=== PATIENT | male | born 1970 | race Caucasian/White ===

== ENCOUNTER → 2016-07-22 | Outpatient (CLI) | payer BC | LOC: LABWHC1 09:26 | PROVIDERS: ATTEND Internal Medicine Interventional Cardiology | DX: I25.10 Atherosclerotic heart disease of native coronary artery without angina pectoris (principal); E78.5 Hyperlipidemia, unspecified; E03.9 Hypothyroidism, unspecified | CPT/HCPCS: 36415; 80061; 82550; 84439; 84443; 84450; 84460 ==

== ENCOUNTER → 2018-05-25 | Outpatient (CLI) | payer BC ==
[2018-05-25 17:14] LABS: Albumin 4.6 g/dL (3.80-4.90); Albumin/Globulin Ratio 2.3 (1.60-3.17); Anion Gap 12.4 mmol/L (4.00-12.00); Calcium 9.7 mg/dL (8.7-10.3); Carbon Dioxide 24.6 mmol/L (21.6-31.8); LDL Cholesterol,Calculated 37.6 mg/dL (0.0-131.0); Potassium 4.2 mmol/L (3.5-5.5); Total Bilirubin 0.3 mg/dL (0.2-1.2); Total Protein 6.6 g/dL (6.2-8.2); VLDL Calculation 67.4 mg/dL (5.00-40.00)
== END | disposition home or self-care (01) ==
LOC: LABWHC1 08:34
PROVIDERS: ATTEND Family Medicine
DX: I10 Essential (primary) hypertension (principal); E11.59 Type 2 diabetes mellitus with other circulatory complications; F10.20 Alcohol dependence, uncomplicated; M54.5 Low back pain; I25.10 Atherosclerotic heart disease of native coronary artery without angina pectoris; Z68.37 Body mass index [BMI] 37.0-37.9, adult
CPT/HCPCS: 36415; 80053; 80061

== ENCOUNTER 2019-01-18 12:07 | Emergency (ER) | payer BC ==
[2019-01-18 12:35] VITALS: BP 193/84; PULSE 78; RESP 16; TEMP 98.4
--- NOTE | 2019-01-18 12:44 | ED ---
Lower Extremity Injury HPI - General Chief Complaint: Extremity Injury, Lower Stated Complaint: left foot injury Time Seen by Provider: 01/18/19 12:37 Source: patient, RN notes reviewed Mode of arrival: wheelchair Limitations: no limitations - History of Present Illness Initial Comments: 48-year-old male presents emergency Department chief complaint of left foot pain. Patient states that he stepped awkwardly last night felt a crack in his foot. Patient states his lateral left foot pain no prior fractures. Denies any paresthesias no ankle pain. Patient states this did happen at work. - Related Data Previous Rx's Medication Instructions Recorded Ibuprofen [Motrin] 600 mg PO Q8HR PRN #30 tab 01/18/19 Allergies Allergy/AdvReac Type Severity Reaction Status Date / Time shellfish derived [Shellfish] Allergy Anaphylaxis Verified 01/18/19 12:36 Beta Blockers AdvReac Unknown Uncoded 01/18/19 12:36 Review of Systems ROS Statement: Those systems with pertinent positive or pertinent negative responses have been documented in the HPI. ROS Other: All systems not noted in ROS Statement are negative. Past Medical History Past Medical History: Coronary Artery Disease (CAD), Chest Pain / Angina, Diabetes Mellitus, Hyperlipidemia, Hypertension, Myocardial Infarction ([place]) History of Any Multi-Drug Resistant Organisms: None Reported Past Surgical History: Appendectomy, Heart Catheterization With Stent, Hernia Repair, Orthopedic Surgery Past Psychological History: No Psychological Hx Reported Smoking Status: Current every day smoker Past Alcohol Use History: Occasional Past Drug Use History: None Reported General Exam Limitations: no limitations General appearance: alert, in no apparent distress Head exam: Present: atraumatic, normocephalic, normal inspection Respiratory exam: Present: normal lung sounds bilaterally. Absent: respiratory distress, wheezes, rales, rhonchi, stridor Cardiovascular Exam: Present: regular rate, normal rhythm, normal heart sounds. Absent: systolic murmur, diastolic murmur, rubs, gallop, clicks Extremities exam: Present: other (Left foot there is tenderness of the fifth metatarsal region, neurovascular intact with cap refill less than 2 seconds there is no malleolar tenderness no laxity noted there is no notable swelling or ecchymosis) Skin exam: Present: warm, dry, intact, normal color. Absent: rash Course Vital Signs 01/18/19 12:31 Temperature 98.4 F Pulse Rate 78 Respiratory 16 Rate Blood Pressure 193/84 O2 Sat by Pulse 96 Oximetry Medical Decision Making - Medical Decision Making X-rays were obtained which shows no acute fracture left foot. Patient left foot sprain. Patient was given prescription for crutches patient will continue ant i-inflammatories and return for any worsening symptoms. Disposition Clinical Impression: Sprain of left foot Disposition: HOME SELF-CARE Condition: Stable Instructions (If sedation given, give patient instructions): Foot Sprain (ED) Additional Instructions: Please return to the Emergency Department if symptoms worsen or any other concerns. Prescriptions: Ibuprofen [Motrin] 600 mg PO Q8HR PRN #30 tab PRN Reason: Pain Is patient prescribed a controlled substance at d/c from ED?: No Referrals: Jef Michael MD [Primary Care Provider] - 1-2 days Time of Disposition: 13:03
--- NOTE | 2019-01-18 12:57 | XR ---
EXAMINATION TYPE: XR foot complete LT , 3 VIEWS DATE OF EXAM ORDERED: 01/18/2019 HISTORY: pain lateral foot. COMPARISON: None. FINDINGS: There is a mild hallux valgus deformity. There are mild degenerative changes in the left f irst MTP joint. No fracture, dislocation or other acute osseous lesion is seen. IMPRESSION: 1. NO ACUTE OSSEOUS LESION. 2. MILD DEGENERATIVE CHANGE.
== END 2019-01-18 13:15 | disposition home or self-care (01) ==
LOC: EC 12:07
DX: S93.602A Unspecified sprain of left foot, initial encounter (principal); I25.119 Atherosclerotic heart disease of native coronary artery with unspecified angina pectoris; E11.9 Type 2 diabetes mellitus without complications; E78.5 Hyperlipidemia, unspecified; I10 Essential (primary) hypertension; I25.2 Old myocardial infarction; F17.200 Nicotine dependence, unspecified, uncomplicated; Z88.8 Allergy status to other drugs, medicaments and biological substances; Z91.013 Allergy to seafood; Z95.5 Presence of coronary angioplasty implant and graft; X50.9XXA Other and unspecified overexertion or strenuous movements or postures, initial encounter
CPT/HCPCS: 99283

== ENCOUNTER → 2019-10-23 | Outpatient (CLI) | payer BC | END | disposition home or self-care (01) | LOC: LABWHC1 13:04 | PROVIDERS: ATTEND Family Medicine | DX: Z20.828 Contact with and (suspected) exposure to other viral communicable diseases (principal) | CPT/HCPCS: U0003; C9803 ==

== ENCOUNTER 2023-08-21 07:20 | Day surgery (SDC) | payer BC ==
[2023-08-14 13:04] VITALS: BMI 36.5
[~2023-08-21 07:20] MED LIST: LACTATED RINGERS 1,000 ML IV SCH; LIDOCAINE 1% (10MG/ML) FOR IV START INTRADERMA PRN
[2023-08-21] MEDS: LACTATED RINGERS 1,000 ML IV ONE (08:15)
[2023-08-21 08:27] LABS: Glucose,Whole Blood 133 mg/dL (70-110)
[2023-08-21 08:47] VITALS: TEMP 97.2
[2023-08-21] MEDS ORDERED: LIDOCAINE 1% INJ 10MG/ML (20 ML MDV) ONE (08:49)
[2023-08-21] MEDS ORDERED: PROPOFOL 10 MG/ML 20 ML VIAL IV ONE (08:49)
--- NOTE | 2023-08-21 08:56 | P.GSHP ---
History of Present Illness H&P Date: 08/21/23 Chief Complaint: Colon cancer screening 53-year-old male here for colonoscopy. He has not had one previously. No bowel complaints. No family history of colon cancer. Past Medical History Past Medical History: Coronary Artery Disease (CAD), Chest Pain / Angina, Diabetes Mellitus, Hyperlipidemia, Hypertension, Myocardial Infarction ([place]) Additional Past Medical History / Comment(s): tachycardia Last Myocardial Infarction Date:: 2015 History of Any Multi-Drug Resistant Organisms: None Reported Past Surgical History: Appendectomy, Heart Catheterization With Stent, Hernia Repair Past Anesthesia/Blood Transfusion Reactions: No Reported Reaction Date of Last Stent Placement:: 2015 x2 stents Past Psychological History: No Psychological Hx Reported Smoking Status: Current every day smoker Past Alcohol Use History: Occasional Past Drug Use History: None Reported Medications and Allergies Home Medications Medication Instructions Recorded Confirmed Type Aspirin [Adult Low Dose Aspirin EC] 81 mg PO QAM 08/14/23 08/14/23 History Atorvastatin [Lipitor] 40 mg PO HS 08/14/23 08/21/23 History Cholecalciferol [Vitamin D3 (25 25 mcg PO DAILY 08/14/23 08/14/23 History Mcg = 1000 Iu)] Dapagliflozin Propanediol [Farxiga] 10 mg PO QAM 08/14/23 08/14/23 History Fenofibrate [Lofibra] 160 mg PO QAM 08/14/23 08/14/23 History Irbesartan/Hydrochlorothiazide 1 each PO QAM 08/14/23 08/21/23 History [Irbesartan-Hctz 300-12.5 mg Tb] Nf-Potassium Dose Unk 1 tab PO DAILY 08/14/23 08/21/23 History Omeprazole 20 mg PO DAILY 08/14/23 08/21/23 History Ticagrelor [Brilinta] 90 mg PO QAM 08/14/23 08/21/23 History Turmeric Root Extract [Turmeric] 500 mg PO DAILY 08/14/23 08/14/23 History Ubidecarenone [Coenzyme Q10] 100 mg PO DAILY 08/14/23 08/14/23 History Zinc Gluconate [Zinc] 50 mg PO DAILY 08/14/23 08/14/23 History allopurinoL [Zyloprim] 300 mg PO QAM 08/14/23 08/14/23 History buPROPion HCL [Wellbutrin XL] 150 mg PO QAM 08/14/23 08/14/23 History cloNIDine HCL [Catapres] 0.3 mg PO QAM 08/14/23 08/21/23 History dilTIAZem HCL [dilTIAZem HCL 24Hr 300 mg PO QAM 08/14/23 08/14/23 History ER (Tiazac)] glipiZIDE 2.5 mg PO QAM 08/14/23 08/21/23 History Allergies Allergy/AdvReac Type Severity Reaction Status Date / Time shellfish derived [Shellfish] Allergy Anaphylaxis Verified 01/18/19 12:36 Beta Blockers AdvReac Unknown Uncoded 08/14/23 11:54 Surgical - Exam Vital Signs Temp Pulse Resp BP Pulse Ox 97.2 F L 69 20 127/63 95 08/21/23 08:17 08/21/23 08:17 08/21/23 08:17 08/21/23 08:17 08/21/23 08:17 Physical exam: General: Well-developed, well-nourished HEENT: Normocephalic, sclerae nonicteric Abdomen: Nontender, nondistended Extremities: No edema Neuro: Alert and oriented Results - Labs Abnormal Lab Results - Last 24 Hours (Table) 08/21/23 Range/Units 08:24 POC Glucose (mg/dL) 133 H (70-110) mg/dL Assessment and Plan (1) Colon cancer screening Narrative/Plan: Will proceed with colonoscopy at this time. Current Visit: Yes Status: Acute Code(s): Z12.11 - ENCOUNTER FOR SCREENING FOR MALIGNANT NEOPLASM OF COLON SNOMED Code(s): 783047371
--- NOTE | 2023-08-21 09:25 | P.PCN ---
Date of Procedure: 08/21/23 Procedure(s) Performed: PREOPERATIVE DIAGNOSIS: Colon cancer screening POSTOPERATIVE DIAGNOSIS: Rectal polyp, diverticulosis PROCEDURE: Colonoscopy with snare polypectomy ANESTHESIA: MAC SURGEON: Kirill Giron M.D. SPECIMENS: Polyp ENDOSCOPIC PROCEDURE: The patient was placed on the endoscopy table in the left decubitus position. The Olympus colonoscope was inserted into the anus and passed under direct visualization to the base of the cecum. The appendiceal orifice was visualized. From that point the scope was slowly withdrawn inspecting all surfaces carefully. There were no neoplastic inflammatory or polypoid lesions throughout the cecum, ascending, transverse, descending, and sigmoid colon. In the rectum a small polyp was seen and removed using the snare with cautery technique. There was mild scattered left-sided diverticulosis noted. Digital rectal examination was normal. The patient was taken to the recovery room in stable condition per anesthesia guidelines. RECOMMENDATIONS: Await biopsy results. Repeat colonoscopy likely in 5-7 years.
[2023-08-21 09:43] VITALS: BP 128/68; RESP 18
[2023-08-21 09:44] VITALS: PULSE 73
== END 2023-08-21 10:03 | disposition home or self-care (01) ==
LOC: ORWHC2ENDO 07:20
PROVIDERS: ATTEND Surgery
DX: Z12.11 Encounter for screening for malignant neoplasm of colon (principal); K62.1 Rectal polyp; K57.30 Diverticulosis of large intestine without perforation or abscess without bleeding; I25.10 Atherosclerotic heart disease of native coronary artery without angina pectoris; I10 Essential (primary) hypertension; E78.5 Hyperlipidemia, unspecified; I25.2 Old myocardial infarction; E11.9 Type 2 diabetes mellitus without complications; F17.200 Nicotine dependence, unspecified, uncomplicated; Z90.49 Acquired absence of other specified parts of digestive tract; Z79.82 Long term (current) use of aspirin; Z79.899 Other long term (current) drug therapy; Z79.84 Long term (current) use of oral hypoglycemic drugs; Z79.02 Long term (current) use of antithrombotics/antiplatelets; Z88.8 Allergy status to other drugs, medicaments and biological substances
CPT/HCPCS: 88305; 45385; J2001; J2704

== ENCOUNTER 2023-09-07 12:21 | Emergency (ER) | payer BC ==
[2023-09-07 12:58] LABS: Appearance,Urine Clear (Clear); Bilirubin,Urine Negative (Negative); Blood,Urine Negative (Negative); Color,Urine Light Yellow; Glucose,Urine (UA) Negative (Negative); Ketones,Urine Negative (Negative); Leukocyte Esterase,Urine Negative (Negative); Nitrite,Urine Negative (Negative); PH, Urine 6.5 (5.0-8.0); Protein,Urine 2+ (Negative); RBC,Urine 1 /hpf (0-5); Specific Gravity,Urine 1.012 (1.001-1.035); Squamous Epithelial Cell,Urine <1 /hpf (0-4); Urobilinogen,Urine <2.0 mg/dL (<2.0); WBC,Urine 1 /hpf (0-5)
--- NOTE | 2023-09-07 13:44 | ED ---
Male Urogenital HPI - General Chief complaint: Urogenital Stated complaint: Urogenital injury Time Seen by Provider: 09/07/23 12:31 Source: patient, RN notes reviewed Mode of arrival: ambulatory Limitations: no limitations - History of Present Illness Initial comments: 53-year-old male presents emergency department chief complaint of left-sided testicular pain. Patient states that he was lifting some bags of soil on Sunday and he noticed some discomfort shortly after he states it did get better yesterday but worsened again today. Patient states he has had bilateral inguinal hernia repairs, umbilical hernia repair he states he has no dysuria no change in bowel habits states he has left-sided testicular pain and swelling better with no pressure - Related Data Home Medications Medication Instructions Recorded Confirmed Aspirin [Adult Low Dose Aspirin EC] 81 mg PO QAM 08/14/23 08/14/23 Atorvastatin [Lipitor] 40 mg PO HS 08/14/23 08/21/23 Cholecalciferol [Vitamin D3 (25 25 mcg PO DAILY 08/14/23 08/14/23 Mcg = 1000 Iu)] Dapagliflozin Propanediol [Farxiga] 10 mg PO QAM 08/14/23 08/14/23 Fenofibrate [Lofibra] 160 mg PO QAM 08/14/23 08/14/23 Irbesartan/Hydrochlorothiazide 1 each PO QAM 08/14/23 08/21/23 [Irbesartan-Hctz 300-12.5 mg Tb] Nf-Potassium Dose Unk 1 tab PO DAILY 08/14/23 08/21/23 Omeprazole 20 mg PO DAILY 08/14/23 08/21/23 Ticagrelor [Brilinta] 90 mg PO QAM 08/14/23 08/21/23 Turmeric Root Extract [Turmeric] 500 mg PO DAILY 08/14/23 08/14/23 Ubidecarenone [Coenzyme Q10] 100 mg PO DAILY 08/14/23 08/14/23 Zinc Gluconate [Zinc] 50 mg PO DAILY 08/14/23 08/14/23 allopurinoL [Zyloprim] 300 mg PO QAM 08/14/23 08/14/23 buPROPion HCL [Wellbutrin XL] 150 mg PO QAM 08/14/23 08/14/23 cloNIDine HCL [Catapres] 0.3 mg PO QAM 08/14/23 08/21/23 dilTIAZem HCL [dilTIAZem HCL 24Hr 300 mg PO QAM 08/14/23 08/14/23 ER (Tiazac)] glipiZIDE 2.5 mg PO QAM 08/14/23 08/21/23 Allergies Allergy/AdvReac Type Severity Reaction Status Date / Time shellfish derived [Shellfish] Allergy Anaphylaxis Verified 01/18/19 12:36 Beta Blockers AdvReac Unknown Uncoded 08/14/23 11:54 Review of Systems ROS Statement: Those systems with pertinent positive or pertinent negative responses have been documented in the HPI. ROS Other: All systems not noted in ROS Statement are negative. Past Medical History Past Medical History: Coronary Artery Disease (CAD), Chest Pain / Angina, Diabetes Mellitus, Hyperlipidemia, Hypertension, Myocardial Infarction ([place]) Additional Past Medical History / Comment(s): tachycardia Last Myocardial Infarction Date:: 2015 History of Any Multi-Drug Resistant Organisms: None Reported Past Surgical History: Appendectomy, Heart Catheterization With Stent, Hernia Repair Past Anesthesia/Blood Transfusion Reactions: No Reported Reaction Date of Last Stent Placement:: 2015 x2 stents Past Psychological History: No Psychological Hx Reported Smoking Status: Current every day smoker Past Alcohol Use History: Occasional Past Drug Use History: None Reported General Exam Limitations: no limitations General appearance: alert, in no apparent distress Head exam: Present: atraumatic, normocephalic, normal inspection Respiratory exam: Present: normal lung sounds bilaterally. Absent: respiratory distress, wheezes, rales, rhonchi, stridor Cardiovascular Exam: Present: regular rate, normal rhythm, normal heart sounds. Absent: systolic murmur, diastolic murmur, rubs, gallop, clicks GI/Abdominal exam: Present: soft, normal bowel sounds. Absent: distended, tenderness, guarding, rebound, rigid exam: Present: testicular tenderness, scrotal swelling. Absent: vertical testicular lie Course Vital Signs 09/07/23 09/07/23 12:24 15:33 Temperature 98.3 F 98.1 F Pulse Rate 100 89 Respiratory 20 18 Rate Blood Pressure 162/85 155/76 O2 Sat by Pulse 100 100 Oximetry Medical Decision Making - Medical Decision Making Was pt. sent in by a medical professional or institution (, PA, BUS INFO CONSULTANT, urgent care, hospital, or retirement...) When possible be specific @ -No Did you speak to anyone other than the patient for history (EMS, parent, family, police, friend...)? What history was obtained from this source @ -No Did you review nursing and triage notes (agree or disagree)? Why? @ -I reviewed and agree with nursing and triage notes Were old charts reviewed (outside hosp., previous admission, EMS record, old EKG, old radiological studies, urgent care reports/EKG's, retirement records)? Report findings @ -No old charts were reviewed Differential Diagnosis (chest pain, altered mental status, abdominal pain women, abdominal pain men, vaginal bleeding, weakness, fever, dyspnea, syncope, headache, dizziness, GI bleed, back pain, seizure, CVA, palpatations, mental health, musculoskeletal)? @ -Testicular torsion, hydrocele, varicocele, inguinal hernia, groin strain EKG interpreted by me (3pts min.). @ -None X-rays interpreted by me (1pt min.). @ -None done CT interpreted by me (1pt min.). @ -None done U/S interpreted by me (1pt. min.). @ -Ultrasound scrotum no acute process small hydrocele and right What testing was considered but not performed or refused? (CT, X-rays, U/S, labs)? Why? @ -None What meds were considered but not given or refused? Why? @ -None Did you discuss the management of the patient with other professionals (professionals i.e. , PA, BUS INFO CONSULTANT, lab, RT, psych nurse, social worker aide, full stack python developer, teacher, [place] police officer, family preservation caseworker)? Give summary @ -No Was smoking cessation discussed for >3mins.? @ -No Was critical care preformed (if so, how long)? @ -No Were there social determinants of health that impacted care today? How? (Homelessness, low income, unemployed, alcoholism, drug addiction, transportation, low edu. Level, literacy, decrease access to med. care, prison, rehab)? @ -No Was there de-escalation of care discussed even if they declined (Discuss DNR or withdrawal of care, Hospice)? DNR status @ -No What co-morbidities impacted this encounter? (DM, HTN, Smoking, COPD, CAD, Cancer, CVA, ARF, Chemo, Hep., AIDS, mental health diagnosis, sleep apnea, morbid obesity)? @ -None Was patient admitted / discharged? Hospital course, mention meds given and route, prescriptions, significant lab abnormalities, going to OR and other pertinent info. @ -Discharge patient presented for scrotal pain intermittently ultrasound did not reveal any acute findings. Patient may have a strain will be discharged and follow-up with prior surgeon. Undiagnosed new problem with uncertain prognosis? @ -No Drug Therapy requiring intensive monitoring for toxicity (Heparin, Nitro, Insulin, Cardizem)? @ -No Were any procedures done? @ -No Diagnosis/symptom? @ -Groin pain, scrotal pain Acute, or Chronic, or Acute on Chronic? @ -Acute Uncomplicated (without systemic symptoms) or Complicated (systemic symptoms)? @ -Uncomplicated Side effects of treatment? @ -No Exacerbation, Progression, or Severe Exacerbation? @ -No Poses a threat to life or bodily function? How? (Chest pain, [place], [place], pneumonia, PE, COPD, DKA, ARF, appy, cholecystitis, CVA, Diverticulitis, Homicidal, Suicidal, threat to staff... and all critical care pts) @ -No - Lab Data Lab Results 09/07/23 Range/Units 12:38 Urine Color Light Yellow Urine Appearance Clear (Clear) Urine pH 6.5 (5.0-8.0) Ur Specific [place] 1.012 (1.001-1.035) Urine Protein 2+ H (Negative) Urine Glucose (UA) Negative (Negative) Urine Ketones Negative (Negative) Urine Blood Negative (Negative) Urine Nitrite Negative (Negative) Urine Bilirubin Negative (Negative) Urine Urobilinogen <2.0 (<2.0) mg/dL Ur Leukocyte Esterase Negative (Negative) Urine RBC 1 (0-5) /hpf Urine WBC 1 (0-5) /hpf Ur Squamous Epith Cells <1 (0-4) /hpf Disposition Clinical Impression: Testicle pain, Groin pain Disposition: HOME SELF-CARE Condition: Stable Instructions (If sedation given, give patient instructions): Testicle Pain (ED), Scrotal Pain (ED) Additional Instructions: Please return to the Emergency Department if symptoms worsen or any other concerns. Is patient prescribed a controlled substance at d/c from ED?: No Referrals: Jef Michael MD [Primary Care Provider] - 1-2 days Time of Disposition: 15:01
--- NOTE | 2023-09-07 14:17 | US ---
EXAMINATION TYPE: US scrotum with doppler. Grayscale and color Doppler Duplex imaging performed of josh whitney scrotum. DATE OF EXAM: 09/07/2023 COMPARISON: NONE CLINICAL INDICATION: Male, 53 years old with history of pain; Lt groin/testicle pain after yard work Sunday EXAM MEASUREMENTS: TESTICLES: Right Testicle: 4.3x2.5x2.6 cm Left Testicle: 4.3x2.6x2.8 cm EPIDIDYMIS HEAD: Right Epididymis: 0.7 cm Left Epididymis: 0.8 cm Doppler performed to assess for testicular vascularity; good bilateral color flow and waveforms are s een. There is no evidence of testicular torsion. Presence of hydroceles: small right hydrocele Presence of varicoceles: no IMPRESSION: 1. No evidence for intratesticular mass. 2. Appropriate arterial and venous spectral waveforms. 3. Small right hydrocele.
[2023-09-07 15:36] VITALS: BP 155/76; PULSE 89; RESP 18; TEMP 98.1
== END 2023-09-07 15:51 | disposition home or self-care (01) ==
LOC: EC 12:21
DX: N50.812 Left testicular pain (principal); R10.32 Left lower quadrant pain; F17.200 Nicotine dependence, unspecified, uncomplicated; Z91.013 Allergy to seafood; Z88.8 Allergy status to other drugs, medicaments and biological substances
CPT/HCPCS: 76870; 81001; 93975; 99284

== ENCOUNTER 2024-10-05 17:22 | Emergency (ER) | payer BC ==
[2024-10-05 17:28] VITALS: TEMP 98
[2024-10-05] MEDS: LACTATED RINGERS 1,000 ML IV ONE (17:54)
[2024-10-05] MEDS: IPRATROPIUM 0.5 MG/2.5 ML NEBU INHALATION STA (17:55)
[2024-10-05] MEDS: ALBUTEROL NEBULIZED 2.5 MG/3 ML INHALATION STA (17:55)
[2024-10-05] MEDS: BUDESONIDE 1 MG/2 ML NEBU INHALATION STA (17:55)
[2024-10-05] MEDS: methylPREDNISolone SOD SUCCI 125 MG/2 ML VIAL IV STA (17:55)
[2024-10-05 18:09] LABS: Basophils # (A) 0.09 10*3/uL (0.00-0.10); Basophils % (A) 0.8 %; Eosinophils # (A) 0.22 10*3/uL (0.04-0.35); Eosinophils % (A) 1.9 %; HCT 43.2 % (39.6-50.0); HGB 15.3 g/dL (13.0-17.0); Lymphocytes # (A) 3.61 10*3/uL (0.90-5.00); Lymphocytes % (A) 31.3 %; MCH 32.7 pg (27.0-32.0); MCHC 35.4 g/dL (32.0-37.0); MCV 92.3 fL (80.0-97.0); Monocytes # (A) 1.18 10*3/uL (0.20-1.00); Monocytes % (A) 10.2 %; Neutrophils # (A) 6.34 10*3/uL (1.80-7.70); Neutrophils % (A) 54.8 %; Platelet Count 317 10*3/uL (140-440); RBC 4.68 10*6/uL (4.40-5.60); RDW 12.4 % (11.5-14.5); WBC 11.55 10*3/uL (4.50-10.00)
--- NOTE | 2024-10-05 18:18 | ED ---
General Adult HPI - General Chief complaint: Shortness of Breath Stated complaint: BETSEY, Chlorine ingestion Time Seen by Provider: 10/05/24 17:30 Source: patient, RN notes reviewed, old records reviewed Mode of arrival: ambulatory Limitations: no limitations - History of Present Illness Initial comments: This is a 54-year-old male who presents to the emergency department complaining of shortness of breath. Patient states he was putting chlorine tablets in his pool and he took a big breath in the chlorine when it was lungs and ever since then he has been having a hard time breathing and coughing. Patient denies any fever chills. Patient has any chest pain or palpitations. Patient denies having had this before. Patient has any history of COPD or asthma however he is a smoker. - Related Data Home Medications Medication Instructions Recorded Confirmed Aspirin [Adult Low Dose Aspirin EC] 81 mg PO QAM 08/14/23 08/14/23 Atorvastatin [Lipitor] 40 mg PO HS 08/14/23 08/21/23 Cholecalciferol [Vitamin D3 (25 25 mcg PO DAILY 08/14/23 08/14/23 Mcg = 1000 Iu)] Dapagliflozin Propanediol [Farxiga] 10 mg PO QAM 08/14/23 08/14/23 Fenofibrate [Lofibra] 160 mg PO QAM 08/14/23 08/14/23 Irbesartan/Hydrochlorothiazide 1 each PO QAM 08/14/23 08/21/23 [Irbesartan-Hctz 300-12.5 mg Tb] Nf-Potassium Dose Unk 1 tab PO DAILY 08/14/23 08/21/23 Omeprazole 20 mg PO DAILY 08/14/23 08/21/23 Ticagrelor [Brilinta] 90 mg PO QAM 08/14/23 08/21/23 Turmeric Root Extract [Turmeric] 500 mg PO DAILY 08/14/23 08/14/23 Ubidecarenone [Coenzyme Q10] 100 mg PO DAILY 08/14/23 08/14/23 Zinc Gluconate [Zinc] 50 mg PO DAILY 08/14/23 08/14/23 allopurinoL [Zyloprim] 300 mg PO QAM 08/14/23 08/14/23 buPROPion HCL [Wellbutrin XL] 150 mg PO QAM 08/14/23 08/14/23 cloNIDine HCL [Catapres] 0.3 mg PO QAM 08/14/23 08/21/23 dilTIAZem HCL [dilTIAZem HCL 24Hr 300 mg PO QAM 08/14/23 08/14/23 ER (Tiazac)] glipiZIDE 2.5 mg PO QAM 08/14/23 08/21/23 Previous Rx's Medication Instructions Recorded Albuterol Inhaler [Ventolin Hfa 2 puff INHALATION RT-QID #18 gm 10/05/24 Inhaler] predniSONE [Deltasone] 40 mg PO DAILY #8 tab 10/05/24 Allergies Allergy/AdvReac Type Severity Reaction Status Date / Time shellfish derived [Shellfish] Allergy Anaphylaxis Verified 10/05/24 17:28 Beta Blockers AdvReac Unknown Uncoded 10/05/24 17:28 Review of Systems ROS Statement: Those systems with pertinent positive or pertinent negative responses have been documented in the HPI. ROS Other: All systems not noted in ROS Statement are negative. Past Medical History Past Medical History: Coronary Artery Disease (CAD), Chest Pain / Angina, Diabetes Mellitus, Hyperlipidemia, Hypertension, Myocardial Infarction (MT) Additional Past Medical History / Comment(s): tachycardia Last Myocardial Infarction Date:: 2015 History of Any Multi-Drug Resistant Organisms: None Reported Past Surgical History: Appendectomy, Heart Catheterization With Stent, Hernia Repair Past Anesthesia/Blood Transfusion Reactions: No Reported Reaction Date of Last Stent Placement:: 2015 x2 stents Past Psychological History: No Psychological Hx Reported Smoking Status: Current every day smoker Past Alcohol Use History: Occasional Past Drug Use History: None Reported General Exam - General Exam Comments Initial Comments: GENERAL: Patient is well-developed and well-nourished. Patient is nontoxic and well- hydrated and is in mild distress. ENT: Neck is soft and supple. No significant lymphadenopathy is noted. Oropharynx is clear. Moist mucous membranes. Neck has full range of motion without eliciting any pain. EYES: The sclera were anicteric and conjunctiva were pink and moist. Extraocular movements were intact and pupils were equal round and reactive to light. Eyelids were unremarkable. PULMONARY: Patient has diffuse expiratory wheezing CARDIOVASCULAR: There is a regular rate and rhythm without any murmurs gallops or rubs. ABDOMEN: Soft and nontender with normal bowel sounds. SKIN: Skin is clear with no lesions or rashes and otherwise unremarkable. NEUROLOGIC: Patient is alert and oriented x3. Cranial nerves II through XII are grossly intact. Motor and sensory are also intact. Normal speech, volume and content. Symmetrical smile. MUSCULOSKELETAL: Normal extremities with adequate strength and full range of motion. No lower extremity swelling or edema. No calf tenderness. LYMPHATICS: No significant lymphadenopathy is noted PSYCHIATRIC: Normal psychiatric evaluation. Limitations: no limitations Course Vital Signs 10/05/24 10/05/24 10/05/24 17:24 17:55 18:20 Temperature 98.0 F Pulse Rate 105 H 101 H 103 H Respiratory 26 H Rate Blood Pressure 118/63 O2 Sat by Pulse 92 L Oximetry 10/05/24 18:40 Temperature Pulse Rate 104 H Respiratory Rate Blood Pressure O2 Sat by Pulse Oximetry Medical Decision Making - Medical Decision Making EKG is interpreted by myself but EKG shows a sinus tachycardia 101 bpm WV 150 QRS 106 QT interval 330 QTc is 388. Patient's EKG shows no ST segment elevation or depression. Was pt. sent in by a medical professional or institution (, PA, SCOUT LEASER, urgent care, hospital, or residential...) When possible be specific @ -No Did you speak to anyone other than the patient for history (EMS, parent, family, police, friend...)? What history was obtained from this source @ -No Did you review nursing and triage notes (agree or disagree)? Why? @ -I reviewed and agree with nursing and triage notes Were old charts reviewed (outside hosp., previous admission, EMS record, old EKG, old radiological studies, urgent care reports/EKG's, residential records)? Report findings @ -No old charts were reviewed Differential Diagnosis? @ -Differential Dyspnea: Coronary syndrome, arrhythmia, tamponade, asthma, chemical pneumonitis, COPD, pulmonary embolism, pneumonia, pneumothorax, pulmonary effusion, anaphylaxis, diabetic ketoacidosis, flailed chest, pulmonary contusion, diaphragmatic rupture, anemia, neuromuscular, this is not meant to be an all-inclusive list. EKG interpreted by me (3pts min.). @ -As above X-rays interpreted by me (1pt min.). @ -Chest x-ray shows no acute abnormality CT interpreted by me (1pt min.). @ -None done U/S interpreted by me (1pt. min.). @ -None done What testing was considered but not performed or refused? (CT, X-rays, U/S, labs)? Why? @ -None What meds were considered but not given or refused? Why? @ -None Did you discuss the management of the patient with other professionals (professionals i.e. , PA, SCOUT LEASER, lab, RT, psych nurse, social services coordinator, chute loader, teacher, mounted police officer, director of casework department)? Give summary @ -No Was smoking cessation discussed for >3mins.? @ -No Was critical care preformed (if so, how long)? @ -No Were there social determinants of health that impacted care today? How? (Homelessness, low income, unemployed, alcoholism, drug addiction, transportation, low edu. Level, literacy, decrease access to med. care, shelter, rehab)? @ -No Was there de-escalation of care discussed even if they declined (Discuss DNR or withdrawal of care, Hospice)? DNR status @ -No What co-morbidities impacted this encounter? (DM, HTN, Smoking, COPD, CAD, Cancer, CVA, ARF, Chemo, Hep., AIDS, mental health diagnosis, sleep apnea, morbid obesity)? @ -None Was patient admitted / discharged? Hospital course, mention meds given and route, prescriptions, significant lab abnormalities, going to OR and other pertinent info. @ -Patient was tachypneic when he arrived he was given 2 consecutive breathing treatments and steroids. I went back and listen to him on multiple occasions he was feeling much better he no longer had any wheezing he will be discharged home. Undiagnosed new problem with uncertain prognosis? @ -No Drug Therapy requiring intensive monitoring for toxicity (Heparin, Nitro, Insulin, Cardizem)? @ -No Were any procedures done? @ -No Diagnosis/symptom? @ -Chemical pneumonitis Acute, or Chronic, or Acute on Chronic? @ -Acute Uncomplicated (without systemic symptoms) or Complicated (systemic symptoms)? @ -Complicated Side effects of treatment? @ -No Exacerbation, Progression, or Severe Exacerbation? @ -No Poses a threat to life or bodily function? How? (Chest pain, USA, MT, pneumonia, PE, COPD, DKA, ARF, appy, cholecystitis, CVA, Diverticulitis, Homicidal, Suicidal, threat to staff... and all critical care pts) @ -No - Lab Data Result diagrams: 10/05/24 17:57 10/05/24 17:57 Lab Results 10/05/24 10/05/24 10/05/24 Range/Units 17:57 17:57 17:57 WBC 11.55 H (4.50-10.00) 10*3/uL RBC 4.68 (4.40-5.60) 10*6/uL Hgb 15.3 (13.0-17.0) g/dL Hct 43.2 (39.6-50.0) % MCV 92.3 (80.0-97.0) fL MCH 32.7 H (27.0-32.0) pg MCHC 35.4 (32.0-37.0) g/dL Plt Count 317 (140-440) 10*3/uL MPV 10.1 (9.5-12.2) fL Immature Gran % (Auto) 1.0 % Neutrophils % 54.8 % Lymphocytes % 31.3 % Monocytes % 10.2 % Eosinophils % 1.9 % Basophils % 0.8 % Immature Gran # 0.11 H (0.00-0.04) 10*3/uL Neutrophils # 6.34 (1.80-7.70) 10*3/uL Lymphocytes # 3.61 (0.90-5.00) 10*3/uL Monocytes # 1.18 H (0.20-1.00) 10*3/uL Eosinophils # 0.22 (0.04-0.35) 10*3/uL Basophils # 0.09 (0.00-0.10) 10*3/uL PT 10.5 (10.0-12.5) sec INR 0.9 (<1.2) APTT 24.1 (22.0-30.0) sec Sodium 141 (137-145) mmol/L Potassium 3.6 (3.5-5.1) mmol/L Chloride 104 (98-107) mmol/L Carbon Dioxide 19 L (22-30) mmol/L Anion Gap 18 mmol/L BUN 14 (9-20) mg/dL Creatinine 0.87 (0.66-1.25) mg/dL Est GFR (CKD-EPI)AfAm >90 (>60 ml/min/1.73 sqM) Est GFR (CKD-EPI)NonAf >90 (>60 ml/min/1.73 sqM) Glucose 103 H (74-99) mg/dL Plasma Lactic Acid Gustavo (0.7-2.0) mmol/L Calcium 10.0 (8.4-10.2) mg/dL Magnesium 1.6 (1.6-2.3) mg/dL Total Bilirubin 0.3 (0.2-1.3) mg/dL AST 29 (17-59) U/L ALT 17 (4-49) U/L Alkaline Phosphatase 46 (38-126) U/L Troponin I (0.000-0.034) ng/mL Total Protein 7.4 (6.3-8.2) g/dL Albumin 4.6 (3.5-5.0) g/dL 10/05/24 10/05/24 Range/Units 17:57 17:57 WBC (4.50-10.00) 10*3/uL RBC (4.40-5.60) 10*6/uL Hgb (13.0-17.0) g/dL Hct (39.6-50.0) % MCV (80.0-97.0) fL MCH (27.0-32.0) pg MCHC (32.0-37.0) g/dL Plt Count (140-440) 10*3/uL MPV (9.5-12.2) fL Immature Gran % (Auto) % Neutrophils % % Lymphocytes % % Monocytes % % Eosinophils % % Basophils % % Immature Gran # (0.00-0.04) 10*3/uL Neutrophils # (1.80-7.70) 10*3/uL Lymphocytes # (0.90-5.00) 10*3/uL Monocytes # (0.20-1.00) 10*3/uL Eosinophils # (0.04-0.35) 10*3/uL Basophils # (0.00-0.10) 10*3/uL PT (10.0-12.5) sec INR (<1.2) APTT (22.0-30.0) sec Sodium (137-145) mmol/L Potassium (3.5-5.1) mmol/L Chloride (98-107) mmol/L Carbon Dioxide (22-30) mmol/L Anion Gap mmol/L BUN (9-20) mg/dL Creatinine (0.66-1.25) mg/dL Est GFR (CKD-EPI)AfAm (>60 ml/min/1.73 sqM) Est GFR (CKD-EPI)NonAf (>60 ml/min/1.73 sqM) Glucose (74-99) mg/dL Plasma Lactic Acid Gustavo 2.7 H* (0.7-2.0) mmol/L Calcium (8.4-10.2) mg/dL Magnesium (1.6-2.3) mg/dL Total Bilirubin (0.2-1.3) mg/dL AST (17-59) U/L ALT (4-49) U/L Alkaline Phosphatase (38-126) U/L Troponin I <0.012 (0.000-0.034) ng/mL Total Protein (6.3-8.2) g/dL Albumin (3.5-5.0) g/dL Disposition Clinical Impression: Chemical pneumonitis Disposition: HOME SELF-CARE Condition: Good Instructions (If sedation given, give patient instructions): Bronchospasm (ED), Pneumonitis (ED) Additional Instructions: Patient should take prednisone as prescribed and use albuterol as needed. Prescriptions: predniSONE [Deltasone] 40 mg PO DAILY #8 tab Albuterol Inhaler [Ventolin Hfa Inhaler] 2 puff INHALATION RT-QID #18 gm Is patient prescribed a controlled substance at d/c from ED?: No Referrals: Jef Michael MD [Primary Care Provider] - 1-2 days Time of Disposition: 20:07
[2024-10-05 18:24] LABS: ALT 17 U/L (4-49); AST 29 U/L (17-59); African American GFR (CKD) >90 (>60 ml/min/1.73 sqM); Albumin 4.6 g/dL (3.5-5.0); Alkaline Phosphatase 46 U/L (38-126); Anion Gap 18 mmol/L; Blood Urea Nitrogen 14 mg/dL (9-20); Calcium 10.0 mg/dL (8.4-10.2); Carbon Dioxide 19 mmol/L (22-30); Chloride 104 mmol/L (98-107); Glucose 103 mg/dL (74-99); Magnesium 1.6 mg/dL (1.6-2.3); Non-African American GFR(CKD) >90 (>60 ml/min/1.73 sqM); Potassium 3.6 mmol/L (3.5-5.1); Sodium 141 mmol/L (137-145); Total Protein 7.4 g/dL (6.3-8.2)
[2024-10-05 18:46] LABS: INR 0.9 (<1.2); Partial Thromboplastin Time 24.1 sec (22.0-30.0); Prothrombin Time 10.5 sec (10.0-12.5)
--- NOTE | 2024-10-05 18:54 | XR ---
EXAMINATION TYPE: XR chest 2V DATE OF EXAM: 10/05/2024 6:49 PM COMPARISON: 10/05/2024 CLINICAL INDICATION: Male, 54 years old with history of difficulty breathing: Shortness of breath TECHNIQUE: XR chest 2V views of the chest are obtained. FINDINGS: Scattered senescent parenchymal changes noted. Hyperinflation compatible with COPD. No evidence for infiltrate. No evidence for atelectasis. Heart size is stable. Mediastinal structures are stable and grossly unremarkable. No evidence for hilar prominence. Degenerative changes dorsal spine. IMPRESSION: 1. No evidence for acute pulmonary disease. [facility], , 10/05/2024 6:52 PM
[2024-10-05 20:09] VITALS: BP 107/54; PULSE 89; RESP 18
== END 2024-10-05 20:22 | disposition home or self-care (01) ==
LOC: EC 17:22
DX: J68.0 Bronchitis and pneumonitis due to chemicals, gases, fumes and vapors (principal); F17.200 Nicotine dependence, unspecified, uncomplicated; Z91.013 Allergy to seafood; Z88.8 Allergy status to other drugs, medicaments and biological substances
CPT/HCPCS: 36415; 94644; 93005; 80053; 83605; 83735; 84484; 85025; 85610; 85730; 71046; 99285; 96374; 96361 ×2; J2919

== ENCOUNTER → 2024-10-09 | Outpatient (CLI) | payer BC | END | disposition home or self-care (01) | LOC: LABWHC1 10:49 | PROVIDERS: ATTEND Surgery | DX: I73.9 Peripheral vascular disease, unspecified (principal) | CPT/HCPCS: 36415; 82565 ==